=== PATIENT | female | born 1965 | race Caucasian/White ===

== ENCOUNTER 2017-05-19 06:49 | Day surgery (SDC) | payer OTHER ==
[~2017-05-19] VITALS: Ht 160 cm; Wt 55.8 kg
[2017-05-19 07:24] VITALS: BP 137/88
[2017-05-19 10:44] VITALS: BP 127/80
== END 2017-05-19 10:35 | disposition home or self-care (01) ==
LOC: GI 06:49 → OR 08:30 → GI 10:35
PROVIDERS: Internal Medicine Gastroenterology
PROC: 0DJD8ZZ Inspection of Lower Intestinal Tract, Via Natural or Artificial Opening Endoscopic (ICD-10-PCS; principal; 2017-05-19 08:30)
DX: K57.30 Diverticulosis of large intestine without perforation or abscess without bleeding (principal); R19.7 Diarrhea, unspecified; Z68.22 Body mass index [BMI] 22.0-22.9, adult; Z80.0 Family history of malignant neoplasm of digestive organs
CPT/HCPCS: 45378; J1200; J1610; J2250; J2310; J3010; J3490